=== PATIENT | female | born 1995 | race Caucasian/White ===

== ENCOUNTER 2017-06-24 01:52 | Emergency (ER) | payer OTHER ==
[2017-06-24 01:58] VITALS: BP 105/62; PULSE 67; RESP 16; TEMP 97.9; O2SAT 97
--- NOTE | 2017-06-24 02:03 | EDPHY ---
H & P Time Seen by Provider: 06/24/17 01:57 HPI/ROS: HPI Right pinky finger injury. 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 Right 5th finger pulled and possibly jammed. She does not feel the finger was dislocated. Has history of osteogenesis imperfecta. Complains of isolated pain to the right little finger. No other complaint or injury. Denies any swelling or bruising. Pain described as mid finger involving middle and distal phalanx. She is right-hand dominant. ROS: Constitutional: No fever, no chills. No weakness. Musculoskeletal: No back pain. No neck pain. As above. No other extremity pain. Skin: No lacerations or abrasions. Neurological: No focal weakness or altered sensation. Past medical history: As above. Left ankle surgery, C7 through T1 disc herniation, right knee surgery, IUD. 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 Here on [employer] No smoking. No alcohol. Physical Exam: General Appearance: Alert, no distress. This patient is responding to questions appropriately and in full sentences. This patient appears well- hydrated and well-nourished. Right 5th digit and hand examination: There is no ecchymosis, swelling, erythema, warmth or edema noted on gross inspection of the right 5th finger. Vague tenderness over the dorsal and ulnar aspect middle and distal phalanx. No pain with axial compression of the digit. Flexion and extension of the metacarpophalangeal, PIP and PIP joints is normal and unremarkable. Flexor and extensor tendon function appear intact. The skin is intact. Normal capillary refill distally in the digit. The finger is neurovascularly intact. No pain on bony palpation of the hand. Right hand is neurovascularly intact. Neurological: Motor sensory function is grossly intact. Cranial nerves are normal. Gait is normal. Skin: Warm and dry, no rashes. No lacerations or abrasions. Extremities are symmetrical. All joints range without pain or impingement except noted. Psychiatric: No agitation. No depression. Database: EKG: Imaging: Right little finger x-ray series: Negative for fracture, subluxation, dislocation. Interpreted by me. Procedures: Emergency department course: Patient sent for x-rays after my initial evaluation. Results of x-rays reviewed with the patient. 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 She feels comfortable with this. Follow-up and return to emergency department precautions reviewed with her. All of her questions were answered. She was discharged in good condition. Differential Diagnosis: The differential diagnosis on this patient includes but is not limited to finger sprain, finger contusion, finger fracture, finger dislocation. This represents a partial list of diagnoses considered. These considerations are based on history, physical exam, past history, reassessment and diagnostic testing. Smoking Status: Never smoked Constitutional: Initial Vital Signs Temperature (C) 36.6 C 06/24/17 01:55 Heart Rate 67 06/24/17 01:55 Respiratory Rate 16 06/24/17 01:55 Blood Pressure 105/62 06/24/17 01:55 O2 Sat (%) 97 06/24/17 01:55 O2 Delivery Mode Room Air Allergies/Adverse Reactions: hydrocodone Allergy (Verified 08/22/16 21:42) methylprednisolone acetate [From Depo-Medrol] Allergy (Verified 08/22/16 21:42) Home Medications: Medication Instructions Recorded ACCUTANE 06/24/17 Valtrex 06/24/17 Departure - Departure Disposition: Home, Routine, Self-Care Clinical Impression: Injury of right little finger Condition: Good Instructions: Finger Sprain (ED) Additional Instructions: Read and follow provided instructions. Follow-up with your primary care physician or workman's Comp physician in 1-2 days for re-evaluation as needed. Ibuprofen dosin mg every 6 hours with meals for the next days only. Take only as needed for pain Return to the emergency department for worsening pain, swelling, discoloration or other serious concerns. 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 Avoid any activity which exacerbates your right little finger pain. Referrals: NONE *PRIMARY CARE P,. [Primary Care Provider] - As per Instructions
== END 2017-06-24 02:22 | disposition home or self-care (01) ==
DX: S69.91XA Unspecified injury of right wrist, hand and finger(s), initial encounter (principal); X50.9XXA Other and unspecified overexertion or strenuous movements or postures, initial encounter; Y99.0 Civilian activity done for income or pay

== ENCOUNTER → 2017-11-28 | Outpatient (CLI) | payer OTHER ==
[~2017-11-28] MED LIST: GADOBUTROL 10 ML VIAL IVP ONE
== END ==
LOC: FIMAGING 18:49
PROVIDERS: ATTEND Physician Assistant Medical
DX: R42 Dizziness and giddiness (principal); R55 Syncope and collapse
CPT/HCPCS: A9585

== ENCOUNTER 2017-12-16 19:31 | Emergency (ER) | payer BC, OTHER ==
[2017-12-16 19:39] VITALS: TEMP 98.2
--- NOTE | 2017-12-16 19:40 | CPEKG ---
Heart Rate: 80 RR Interval: 750 P-R Interval: 124 QRSD Interval: 84 QT Interval: 360 QTC Interval: 416 P [place]: 52 QRS [place]: 44 T Wave [place]: 34 EKG Severity - NORMAL ECG - EKG Impression: SINUS RHYTHM Electronically Signed By: Osman Anderson 19-Dec-2017 14:38:10
[2017-12-16] MEDS ORDERED: ONDANSETRON 4 MG/2 ML VIAL IVP ONE ×2 (19:44→20:30)
[2017-12-16] MEDS ORDERED: NS 1,000 ML IV ONE ×2 (19:44→20:30)
--- NOTE | 2017-12-16 19:48 | EDPHY ---
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 She states that whenever she stands up she feels lightheaded and tunnel vision like she is going to pass out. She states that this is been intermittent for the last several months. She was worked up by her primary and initially they thought maybe she was having seizures but she had a normal EEG and normal MRI. They then were evaluating her heart and she is currently wearing a Holter monitor. She states that when her episode happened about an hour ago she felt her pulse and counted at 230. She has been eating and drinking normally. She has not had any vomiting or diarrhea. She has not had a fever. No head injury. She states that her brother does have a diagnosis of SVT. She has not had a fever. She denies having pain. No shortness of breath. She states that Dr. Crockett from Cardiology called her and told her that she was in normal sinus rhythm during her event today. She has also had her thyroid checked and states that it is normal. She denies risk of . REVIEW OF SYSTEMS: Constitutional: denies: chills, fever, recent illness, recent injury EENTM: denies: blurred vision, double vision, nose congestion Respiratory: denies: cough, shortness of breath Cardiac: See HPI Gastrointestinal/Abdominal: denies: abdominal pain, diarrhea, nausea, vomiting, blood streaked stools Genitourinary: denies: dysuria, frequency, hematuria, pain Musculoskeletal: denies: joint pain, muscle pain Skin: denies: lesions, rash, jaundice, bruising Neurological: denies: headache, numbness, paresthesia, tingling, dizziness, weakness Hematologic/Lymphatic: denies: blood clots, easy bleeding, easy bruising Immunologic/allergic: denies: HIV/AIDS, transplant EXAM: GENERAL: Well-appearing, well-nourished and in no acute distress. HEAD: Atraumatic, normocephalic. EYES: Pupils equal round and reactive to light, extraocular movements intact, sclera anicteric, conjunctiva are normal. ENT: TMs normal, nares patent, oropharynx clear without exudates. Moist mucous membranes. No nystagmus NECK: Normal range of motion, supple without lymphadenopathy or JVD. LUNGS: Breath sounds clear to auscultation bilaterally and equal. No wheezes rales or rhonchi. HEART: Regular rate and rhythm without murmurs, rubs or gallops. I did have her stand up and she felt lightheaded and water bili. Her heart rate momentarily increased to 120 sinus regular rhythm her blood pressure remained stable. ABDOMEN: Soft, nontender, normoactive bowel sounds. No guarding, no rebound. No masses appreciated. BACK: No CVA tenderness, no spinal tenderness, step-offs or deformities EXTREMITIES: Normal range of motion, no pitting or edema. No clubbing or cyanosis. NEUROLOGICAL: Cranial nerves II through XII grossly intact. Normal speech, normal gait. 5/5 strength, normal movement in all extremities, normal sensation PSYCH: Normal mood, normal affect. SKIN: Warm, dry, normal turgor, no visible rashes or lesions. Source: Patient Exam Limitations: No limitations - Personal History LMP (Females 10-55): 22-28 Days Ago Current Tetanus/Diphtheria Vaccine: Yes Current Tetanus Diphtheria and Acellular Pertussis (TDAP): Yes - Medical/Surgical History Hx Asthma: No Hx Chronic Respiratory Disease: No Hx Diabetes: No Hx Cardiac Disease: No Hx Renal Disease: No Hx Cirrhosis: No Hx Alcoholism: No Hx HIV/AIDS: No Hx Splenectomy or Spleen Trauma: No Other PMH: PSH: L ankle; bunon reconstruction; T&A; R knee sx; C7-T1 herniation - Family History Significant Family History: No pertinent family hx - Social History Smoking Status: Never smoked Alcohol Use: Sober Constitutional: Initial Vital Signs Temperature (C) 36.8 C 12/16/17 19:35 Heart Rate 88 12/16/17 19:35 Respiratory Rate 15 12/16/17 19:35 Blood Pressure 132/80 H 12/16/17 19:35 O2 Sat (%) 100 12/16/17 19:35 O2 Delivery Mode Room Air Allergies/Adverse Reactions: hydrocodone Allergy (Verified 12/16/17 19:43) methylprednisolone acetate [From Depo-Medrol] Allergy (Verified 12/16/17 19:43) Medical Decision Making - Diagnostics EKG Interpretation: An EKG obtained and was read and documented in trace view. Please see trace view for full reading and report. Sinus rhythm, no acute ischemic changes ED Course/Re-evaluation: We did obtain records from the patient's Holter monitor from around 738. This shows a sinus arrhythmia with a normal rate. The patient however states that her symptoms were around 630. We will call to have them recheck. She is currently asymptomatic. 8:20 p.m. the patient's Holter monitor was reviewed by the company. She has been sinus rhythm all day with no significant episodes of arrhythmia or tachycardia. 8:30 p.m. the Holter monitor company referred her rhythm strips for the entire day. She has been sinus rhythm all day with no significant tachycardia. Discussed this with the patient. She is reassured. She still feels slightly lightheaded when she sits up or stands up. This also makes her feel nauseous. She denies dizziness. Will treat her with more fluids and Zofran. She denies headache or neck pain. Her symptoms are not worsened by head turning. The 9:20 p.m. the patient's blood pressure is slightly orthostatic. Her heart rate remained stable. At this point she is essentially asymptomatic. 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 Differential Diagnosis: Partial list of the Differential diagnosis considered include but were not limited to; arrhythmia, dehydration, electrolyte abnormality, thyroid abnormality, and although unlikely based on the history and physical exam, I also considered anemia, dissection, CVA, BPV, acute coronary disease, carotid venous insufficiency. I discussed these differential diagnoses and the plan with the patient as well as the usual and expected course. The patient understands that the diagnosis is provisional and that in medicine we are not always correct and that further workup is often warranted. Usual and customary warnings were given. All of the patient's questions were answered. The patient was instructed to return to the emergency department should the symptoms at all worsen or return, otherwise to followup with the physician as we discussed. - Data Points Laboratory Results: Laboratory Results 12/16/17 19:50 12/16/17 19:50 Medications Given: Discontinued Medications Sodium Chloride (Ns) 1,000 mls @ 0 mls/hr IV EDNOW ONE; Wide Open PRN Reason: Protocol Stop: 12/16/17 19:45 Last Admin: 12/16/17 19:51 Dose: 1,000 mls Sodium Chloride (Ns) 1,000 mls @ 0 mls/hr IV EDNOW ONE; Wide Open PRN Reason: Protocol Stop: 12/16/17 20:31 Last Admin: 12/16/17 20:33 Dose: 1,000 mls Ondansetron HCl (Zofran) 4 mg IVP EDNOW ONE Stop: 12/16/17 19:45 Last Admin: 12/16/17 19:56 Dose: 4 mg Ondansetron HCl (Zofran) 4 mg IVP EDNOW ONE Stop: 12/16/17 20:31 Last Admin: 12/16/17 20:34 Dose: 4 mg Departure - Departure Disposition: Home, Routine, Self-Care Clinical Impression: Pre-syncope Condition: Fair Instructions: Near Syncope (ED) Referrals: [facility] [Other] - As per Instructions Bryn Crockett MD [Medical Doctor] - 2-3 days, call for appt.
[2017-12-16 20:00] LABS: PLATELET COUNT 259 10^3/uL (150-400)
[2017-12-16] MEDS ORDERED: ONDANSETRON 4 MG/2 ML VIAL ONE (20:30)
[2017-12-16 20:35] VITALS: RESP 16; O2SAT 97
[2017-12-16 21:23] VITALS: BP 120/70; PULSE 78
== END 2017-12-16 21:30 | disposition home or self-care (01) ==
LOC: EDUNIT#
DX: R55 Syncope and collapse (principal); E86.9 Volume depletion, unspecified
CPT/HCPCS: 96374; J2405